=== PATIENT | male | born 1940 | race Hispanic/Latino ===

== ENCOUNTER → 2017-12-25 07:18 | Outpatient (CLI) | payer MEDICARE, SELFPAY ==
--- NOTE | 2017-12-25 | DI.RAD.S_ITS ---
PROCEDURE: XR LUMBAR SPINE MIN 4V INDICATIONS: BACK PAIN TECHNIQUE: 5 views of the lumbar spine were acquired, including flexion and extension views. COMPARISON: [facility], , -SPINE 2-3 VIEWS, 09/15/2014, 8:34. FINDINGS: Bones: 5 nonrib-bearing, lumbar type vertebral bodies are seen. Minimal anterolisthesis is seen at the L5-S1 level. The disc spaces are well-preserved. Facet arthropathy is seen throughout, which is most prominent inferiorly. Soft tissues: Overlying bowel gas pattern is normal. No suspicious soft tissue calcifications. Atherosclerotic calcification is noted. Flexion/extension: There is normal range of motion, with preserved normal alignment. IMPRESSION: Mild degenerative changes, particularly considering the patient's age. Normal range of motion, without abnormal subluxation. Dictated by: Matteo Camp M.D. on 12/25/2017 at 8:10 Approved by: Matteo Camp M.D. on 12/25/2017 at 8:11
== END ==
PROVIDERS: PCP Physician Assistant; Visit Provider Physician Assistant
DX: M47.816 Spondylosis without myelopathy or radiculopathy, lumbar region (principal); M54.9 Dorsalgia, unspecified
CPT/HCPCS: 72110

== ENCOUNTER → 2019-01-06 07:40 | Outpatient (CLI) | payer MEDICARE, SELFPAY ==
--- NOTE | 2019-01-06 | DI.RAD.S_ITS ---
PROCEDURE: XR KNEE RT 1TO2V INDICATIONS: PAIN IN RT/LT KNEE TECHNIQUE: 2 views of the knee were acquired. COMPARISON: [facility], , KNEE 3V RIGHT, 05/09/2015, 8:28. [facility], , KNEE 3V LEFT, 05/09/2015, 8:28. FINDINGS: Bones: No fractures or dislocations. No suspicious bony lesions. Scattered degenerative subchondral sclerosis and spurring. No definite joint space narrowing Soft tissues: No joint effusion. No suspicious soft tissue calcifications. IMPRESSION: Minimal degenerative changes. If the patient's pain or other symptoms persist, consider further evaluation with MRI Dictated by: Fareed Maldonado M.D. on 01/06/2019 at 9:23 Approved by: Fareed Maldonado M.D. on 01/06/2019 at 9:24
--- NOTE | 2019-01-06 | DI.RAD.S_ITS ---
PROCEDURE: XR KNEE LT 1TO2V INDICATIONS: PAIN IN RT/LT KNEE TECHNIQUE: 2 views of the knee were acquired. COMPARISON: [facility], [place], KNEE 3V LEFT, 05/09/2015, 8:28. [facility], [place], XR KNEE RT 1TO2V, 01/06/2019, 7:45. FINDINGS: Bones: No fractures or dislocations. No suspicious bony lesions. Scattered degenerative subchondral sclerosis and spurring. No definite joint space narrowing Soft tissues: No joint effusion. No suspicious soft tissue calcifications. IMPRESSION: Mild degenerative changes, without definite interval progression Dictated by: Fareed Maldonado M.D. on 01/06/2019 at 8:32 Approved by: Fareed Maldonado M.D. on 01/06/2019 at 8:33
== END ==
PROVIDERS: PCP Student in an Organized Health Care Education/Training Program; Visit Provider Student in an Organized Health Care Education/Training Program
DX: M25.561 Pain in right knee (principal); M25.562 Pain in left knee
CPT/HCPCS: 73560

== ENCOUNTER → 2019-04-23 09:16 | Outpatient (CLI) | payer MEDICARE, SELFPAY ==
--- NOTE | 2019-04-23 | DI.US.S_ITS ---
PROCEDURE: US ABD AORTA ANEURYSM SCREEN INDICATIONS: PERSONAL HX OF NICOTINE DEPENDANCE TECHNIQUE: Real time scanning was performed of the aorta and iliac arteries, with image documentation. COMPARISON: None. FINDINGS: Aorta: Proximal aortic diameter measures 2.6 cm. Mid-aorta measures 1.9 cm. Distal aortic diameter is 1.6 cm. Iliac arteries: Right common iliac artery measures 1.3 cm. Left common iliac artery measures 1.3 cm. IMPRESSION: No abdominal aortic or proximal common iliac artery aneurysm. Dictated by: Shen LEACH Interpreted: Cheryl Taylor MD on 04/23/2019 at 13:37 Approved by: Cheryl Taylor M.D. on 04/23/2019 at 14:02
== END ==
PROVIDERS: PCP Student in an Organized Health Care Education/Training Program; Visit Provider Student in an Organized Health Care Education/Training Program
DX: Z13.820 Encounter for screening for osteoporosis (principal); M85.852 Other specified disorders of bone density and structure, left thigh; Z13.6 Encounter for screening for cardiovascular disorders; Z87.891 Personal history of nicotine dependence
CPT/HCPCS: 76706; 77080

== ENCOUNTER 2019-06-14 07:48 | Day surgery (SDC) | payer MEDICARE, SELFPAY ==
--- NOTE | 2019-06-14 | PATH_ITS ---
[facility] Accession Number: [id number] . 01 Material submitted: . colon - COLON POLYP AT 100 CM . 01 Clinical history: . SCREENING COLONOSCOPY . 02 Diagnosis: Colon at 100 cm, Polyp: Tubular adenoma. MRV 06/16/2019 1029 Local . 02 Electronically signed: . Pillo Araujo MD, PhD, Pathologist NPI- [id number] . 01 Gross description: . COLON POLYP AT 100 CM: Received in formalin is 1 fragment(s) of [place], soft tissue measuring 0.3 x 0.2 x 0.2 cm submitted entirely in 1 cassette(s) /[facility] [place] 06/14/20192056 Local . 02 Pathologist provided ICD-10: D12.6 . 02 CPT . 044145 Performed at: 01 [facility] [address] [id number] MD Dean Bean MD Phone: [phone] Performed at: 02 [facility] [address] [place], [place] [id number] MD Sahara Stern MD Phone: [phone]
[2019-06-14 08:30] VITALS: BMI 32.4
--- NOTE | 2019-06-14 08:32 | P.HP_ITS ---
History of Present Illness History of Present Illness Date Patient Seen: 06/14/19 Time Patient Seen: 08:34 Chief complaint: [address] SCREENING COLONOSCOPY Narrative: Patient presents for colorectal screening. They are previously normal colonoscopy 2003. No personal or family history of colon cancer. On further history denies any recent gastrointestinal symptoms. No nausea, vomiting, abdominal pain, loss of appetite, unexplained weight loss, change in bowel habits, diarrhea, constipation, melena, hematochezia, or bright red blood per rectum. Patient History Medical History (Updated 06/14/19 @ 08:34 by Pascual Quan MD) Cervical spine fracture (Acute) Hyperlipidemia (Acute) Surgical History (Updated 06/14/19 @ 08:33 by Pascual Quan MD) S/P cervical spinal fusion (Acute) Meds Home Medications and Allergies Home Medications Medication Instructions Recorded Confirmed Type aspirin 81 mg PO Q OTHER DAY 06/14/19 06/14/19 History famotidine [Pepcid] 20 mg PO DAILY 06/14/19 06/14/19 History tadalafil [Cialis] 20 mg PO DAILY 06/14/19 06/14/19 History Allergies Allergy/AdvReac Type Severity Reaction Status Date / Time No Known Drug Allergies Allergy Verified 06/14/19 08:23 Review of Systems Review of Systems Narrative: A 10 point review of systems is negative except as noted in the HPI Exam Narrative Exam Narrative: General-no acute distress, well nourished HEENT-moist mucous membranes, no scleral icterus Neck-supple, no lymphadenopathy Chest- non labored respirations, clear to auscultation bilaterally Cardiac-regular rate no peripheral edema Abdomen-soft, nontender, non distended Extremities-warm, well perfused Neurological-alert and oriented, no focal deficits Assessment & Plan Assessment and plan (1) Screening for colon cancer: Current visit: Yes Status: Acute Assessment & Plan narrative: The patient requires colorectal screening and colonoscopy is recommended. Technical details were discussed. Risks, benefits, alternatives explained. Risks including but not limited to myocardial infarction, aspiration, bleeding, pain, missed lesion, incomplete examination, need for further radiographic studies, colonic perforation, and need for major abdominal surgery were discussed. All questions were answered to their sat isfaction, and they are in agreement with this plan.
[2019-06-14 08:40] VITALS: BP 144/90; PULSE 61; RESP 15; TEMP 36.3; O2SAT 97
[2019-06-14] MEDS: ONDANSETRON 4 MG/2 ML INJ IV (08:43)
[2019-06-14] MEDS: SODIUM CHLORIDE 0.9% 1,000 ML 200 ML IV (08:43)
--- NOTE | 2019-06-14 09:25 | PM.OP.ENDO ---
Operative Date/Time/Diagnoses Date of procedure: 06/14/19 Time of procedure: 09:25 Pre-op diagnosis: Screening Post-op diagnosis: same Procedure & Clinicians Study performed: Colonoscopy Same procedure as scheduled: Yes Indications: Screening, last colonoscopy 2003 Surgeon: Pascual Quan Procedure Notes SCOAP/Timeout: Performed Procedure in detail: Patient placed in left lateral decubitus position. Time out was performed. Procedural sedation was administered with Versed and Fentanyl. A rectal exam demonstrated no external hemorrhoids no internal masses. Colonoscopy scope was placed into the rectum and advanced through the colon to the cecum. The ileocecal valve was identified. The scope was then slowly withdrawn examining colon thoroughly in all directions. The colonoscopy was notable for the following 1. Adenomatous appearing polyp less than 1 cm at 100 cm from anal verge removed with Jumbo forceps, hemostasis observed 2. Sigmoid diverticulosis 3. Quality of prep excellent Scope withdrawal time: 9 Sedation minutes: 20 Findings: polyp Specimen(s): other (Polyp) Complications: none Impression: Polyp Post-procedure Recommendations: Colonscopy in 5 years Disposition: same day surgery
[2019-06-14] MEDS: MIDAZOLAM 5 MG/5 ML VIAL IV (09:27)
[2019-06-14 09:28] VITALS: BP 162/85; PULSE 63; RESP 12; TEMP 36.8; O2SAT 94
[2019-06-14] MEDS: fentaNYL 250 MCG/5 ML INJ IV (09:28)
[2019-06-14 09:33] VITALS: BP 155/82; PULSE 64; RESP 12; O2SAT 93
[2019-06-14 09:38] VITALS: BP 152/80; PULSE 61; RESP 14; O2SAT 94
[2019-06-14 09:44] VITALS: BP 157/96; PULSE 65; RESP 12; TEMP 36.6; O2SAT 96
== END 2019-06-14 10:08 | disposition home or self-care (01) ==
PROVIDERS: PCP Student in an Organized Health Care Education/Training Program; Referring Provider Student in an Organized Health Care Education/Training Program; Visit Provider Surgery
PROC: 0DJD8ZZ Inspection of Lower Intestinal Tract, Via Natural or Artificial Opening Endoscopic (ICD-10-PCS; CPT 45378; principal; 2019-06-14 09:15)
DX: Z12.11 Encounter for screening for malignant neoplasm of colon (principal); K57.30 Diverticulosis of large intestine without perforation or abscess without bleeding; E78.5 Hyperlipidemia, unspecified; D12.6 Benign neoplasm of colon, unspecified
CPT/HCPCS: 45380; 99152; J2250; J2405; J3010

== ENCOUNTER 2020-08-02 13:43 | Emergency (ER) | payer MEDICARE, SELFPAY ==
[2020-08-02 13:53] VITALS: BP 173/95; PULSE 60; RESP 16; TEMP 36.7; O2SAT 100
--- NOTE | 2020-08-02 14:15 | ED.WOUNDLAC ---
HPI - Wound/Laceration General Chief Complaint: Wound/Laceration Stated Complaint: sliced middle finger right hand Time Seen by Provider: 08/02/20 14:13 Source: patient Mode of arrival: Ambulatory Limitations: no limitations History of Present Illness HPI narrative: 79-year-old male here for evaluation of a right middle finger injury. He states that he cut it when he got it shut in a car door. Is up-to-date on his immunizations. Has not cleaned it out prior to arrival. Covered with bandaging came to the emergency department. Related Data Home Medications Medication Instructions Recorded Confirmed aspirin 81 mg PO Q OTHER DAY 06/14/19 06/14/19 famotidine [Pepcid] 20 mg PO DAILY 06/14/19 06/14/19 tadalafil [Cialis] 20 mg PO DAILY 06/14/19 06/14/19 Allergies Allergy/AdvReac Type Severity Reaction Status Date / Time No Known Drug Allergies Allergy Verified 06/14/19 08:23 Review of Systems Constitutional Constitutional: Denies fever(s) Musculoskeletal Musculoskeletal: Denies tingling Comments: Pain the tip of the right middle finger Integumentary/Breasts Comments: Cut to right middle finger Neurologic Neurologic: Denies confusion and Denies tingling Psychiatric Psychiatric: Denies confusion Hematologic/Lymphatic On Anticoagulants: No Allergic/Immunologic Allergic/Immunologic: Denies urticaria Patient History Medical History Cervical spine fracture Hyperlipidemia Surgical History (Updated 06/14/19 @ 08:33 by Pascual Quan MD) S/P cervical spinal fusion Social History household members: spouse Smoking Status: Former smoker alcohol intake: current Smoking Status: Former smoker alcohol intake frequency: a few times a month Substance Use Type: does not use Exam Initial Vital Signs Initial Vital Signs: Vital Signs Temperature 98.0 F 08/02/20 13:53 Pulse Rate 60 08/02/20 13:53 Respiratory Rate 16 08/02/20 13:53 Blood Pressure 173/95 H 08/02/20 13:53 Pulse Oximetry 100 08/02/20 13:53 Const General: cooperative, comfortable and well developed HENGA Head: normal to inspection and normocephalic Resp Effort & Inspection: normal respiratory effort Cardio Pulses: radial pulses present on the right Skin Other: Patient with a 2 cm laceration on the radial aspect of the right middle finger to the D IP joint on the volar aspect. Neuro General: patient alert, patient awake and patient oriented x3 Sensory Exam: no sensory deficits noted Extrem General: capillary refill normal Psych Appearance: grossly normal and well kempt Procedures Laceration Repair Laceration 1: Site: other (Middle finger) Side (If applicable): right Size (cm): 3 Description: linear Depth: simple, single layer Local Anesthetic: lidocaine 1% and with bicarb Amount of anesthesia used (mL): 3 Pre-repair: wound explored and irrigated extensively Skin layer closed with: nylon Size (cm): 4-0 Number of sutures: 6 Technique: simple, interrupted Course Orders Ordered: ED Orders 08/02/20 14:15 XR finger RT min 2V Stat Discontinued Medications Bacitracin (Bacitracin Oint 0.9 Gm Pckt) 1 applic TOP NOW ONE Stop: 08/02/20 14:16 Last Admin: 08/02/20 14:33 Dose: 1 applic Documented by: USHA Lidocaine/Sodium Bicarbonate (Lido 1%/Sod Bicarb 8.4% (10ml) 10 Ml Syringe) 10 ml INJ NOW ONE Stop: 08/02/20 14:16 Last Admin: 08/02/20 14:33 Dose: 10 ml Documented by: USHA Vital Signs Vital signs: Vital Signs - 8 hr 08/02/20 13:53 Temperature 98.0 F Pulse Rate 60 Respiratory Rate 16 Blood Pressure 173/95 H Pulse Oximetry 100 MDM - Wound/Laceration Imaging Data Extremity x-ray #1: Radiologist's Impression: [address] [id number] ReportSigned Patient: Gulshan Ryder Jr EMR#: [id number]: [id number]:[id number]/Sex: 79 / MDate of Service: 08/02/20Loc: EDAccession Number: [id number] Procedure: XR finger RT min 2V Ordering Provider: Davie Du D.O. PROCEDURE: XR FINGER RT MIN 2V INDICATIONS: middle finger laderation/trauma, 3rd digit TECHNIQUE: AP hand, 2 views of the 3rd finger(s) acquired. COMPARISON: None. FINDINGS: Bones: No fractures or dislocations. No suspicious bony lesions. Moderately severe degenerative arthritis at the base of the thumb. Soft tissues: No suspicious soft tissue calcifications. 3rd finger soft tissue laceration. No radiopaque foreign body. No soft tissue gas IMPRESSION: No evidence acute bony abnormality of the right middle finger. Incidental note made of moderately severe base of thumb degenerative change. Dictated by: Chad Yanez M.D. on 08/02/2020 at 14:49 Approved by: Chad Yanez M.D. on 08/02/2020 at 14:51 [facility] Narrative Medical decision making narrative: There were no fractures on the x-ray. The wound was closed as described above. He was neurovascularly intact. He was given care instructions and return precautions. He expressed understanding and agreement. Discharge Plan Departure Patient Disposition: Home Clinical Impression: Laceration Instructions: DI for Laceration Repair Activity Restrictions/Additional Instructions: The stitches do need to be removed in 7-10 days. You can wash your hands like normal and use soap and water. You can cover with antibiotic ointment and a bandage. There is research that shows local craft beers improve the healing of finger lacerations. Prescriptions: No Action aspirin 81 mg Tablet,Delayed Release (Dr/Ec) 81 mg PO Q OTHER DAY RF: 0 famotidine [Pepcid] 20 mg Tablet 20 mg PO DAILY RF: 0 tadalafil [Cialis] 20 mg Tablet 20 mg PO DAILY RF: 0 Referrals: Rosy Michael PA-C [Primary Care Provider] -
[2020-08-02] MEDS: BACITRACIN OINT 0.9 GM PCKT 1 APPLIC TOP (14:33)
[2020-08-02] MEDS: LIDO 1%/SOD BICARB 8.4% (10ML) 10 ML SYRINGE INJ (14:33)
== END 2020-08-02 15:14 | disposition home or self-care (01) ==
PROVIDERS: Emergency Provider Emergency Medicine; PCP Student in an Organized Health Care Education/Training Program
DX: S61.212A Laceration without foreign body of right middle finger without damage to nail, initial encounter (principal); W23.0XXA Caught, crushed, jammed, or pinched between moving objects, initial encounter
CPT/HCPCS: 12002; 73140; 99283

== ENCOUNTER → 2021-04-05 12:21 | Outpatient (CLI) | payer MEDICARE, SELFPAY ==
--- NOTE | 2021-04-05 12:25 | DI.RAD.S_ITS ---
PROCEDURE: XR THORACIC SPINE 2V INDICATIONS: MID BACK PAIN TECHNIQUE: 3 views of the thoracic spine were acquired. COMPARISON: [facility], , THORACIC SPINE 3 VIEWS, 09/15/2014, 8:33. [facility], CERVICAL SPINE 4 OR 5 VIEWS, 09/15/2014, 8:28. FINDINGS: Bones: No fractures or dislocations. No suspicious bony lesions. 12 pairs of ribs are noted, and appear intact where visualized. Mild multilevel disc degeneration. Multilevel flowing syndesmophytes. Posterior fixation hardware present at the cervical thoracic junction incompletely visualized. Soft tissues: No paravertebral stripe thickening. IMPRESSION: Mild multilevel disc degeneration. Multilevel flowing syndesmophytes which can be associated with ankylosing spondylitis in the appropriate clinical setting. Dictated by: Shen Lopez [facility] Interpreted: Yaritza Talbot MD on 04/05/2021 at 12:42 Transcribed by: KYRA on 04/05/2021 at 12:43 Approved by: Yaritza Talbot M.D. on 04/05/2021 at 12:54
== END ==
PROVIDERS: PCP Student in an Organized Health Care Education/Training Program; Referring Provider Student in an Organized Health Care Education/Training Program; Visit Provider Student in an Organized Health Care Education/Training Program
DX: M51.34 Other intervertebral disc degeneration, thoracic region (principal); M54.9 Dorsalgia, unspecified
CPT/HCPCS: 72070

== ENCOUNTER → 2022-12-18 17:36 | Outpatient (CLI) | payer MEDICARE, SELFPAY | PROVIDERS: PCP Student in an Organized Health Care Education/Training Program; Visit Provider Student in an Organized Health Care Education/Training Program | DX: R30.0 Dysuria (principal) | CPT/HCPCS: 87086 ==

== ENCOUNTER 2023-09-05 17:40 | Emergency (ER) | payer MEDICARE, SELFPAY ==
[2023-09-05 17:57] VITALS: BP 174/77; PULSE 52; RESP 16; TEMP 36.4; O2SAT 95; BMI 33.5
--- NOTE | 2023-09-05 18:16 | DI.RAD.S_ITS ---
PROCEDURE: XR CHEST 1V INDICATIONS: Possible stroke TECHNIQUE: One view of the chest was acquired. COMPARISON: None. FINDINGS: Surgical changes and devices: Partially evaluated lower cervical spinal hardware. Lungs and pleura: Lungs are clear. No pleural effusions or pneumothorax. Mediastinum: Mediastinal contours appear normal. Heart size is normal. Bones and chest wall: No suspicious bony lesions. Overlying soft tissues appear unremarkable. IMPRESSION: No acute cardiopulmonary abnormality is seen. Approved by: Lise Jonas M.D.,Ph.D. on 09/05/2023 at 17:48
--- NOTE | 2023-09-05 18:16 | DI.CT.S_ITS ---
PROCEDURE: CT HEAD/BRAIN WO CON INDICATIONS: tia symptoms TECHNIQUE: Noncontrast 4.5 mm thick angled axial sections acquired from the foramen magnum to the vertex, with coronal and sagittal reformats. For radiation dose reduction, the following was used: automated exposure control, adjustment of mA and/or kV according to patient size. COMPARISON: None. FINDINGS: Image quality: Diagnostic. CSF spaces: Basal cisterns are patent. No extra-axial fluid collections. The ventricles are symmetric in size and shape. Brain: No intracranial bleeds or masses. There is cerebral volume loss for age, with resultant ventricular and sulcal prominence. There are periventricular and deep white matter chronic small vessel ischemic changes. There is intracranial internal carotid artery atherosclerosis. Skull and face: Calvarium and visualized facial bones appear intact, without suspicious lesions. Sinuses: Visualized sinuses and mastoids are clear. IMPRESSION: 1. No acute intracranial abnormalities. If clinical symptoms persist or clinical suspicion for pathology is high, consider MRI for further evaluation. 2. Cerebral volume loss and chronic microvascular ischemic changes. Dictated by: Yaritza Talbot M.D. on 09/05/2023 at 18:27 Approved by: Yaritza Talbot M.D. on 09/05/2023 at 18:29
[2023-09-05 18:41] LABS: Add Manual Diff / Slide Review NO; Basophils Absolute Auto 100 /uL (0-100); Basophils Percent Auto 1.1 % (0-2); Eosinophils Absolute Auto 400 /uL (0-450); Eosinophils Percent Auto 4.7 % (2-4); Hematocrit 42.4 % (41-53); Hemoglobin 14.3 g/dL (13.5-17.5); Lymphocytes Absolute Auto 2100 /uL (1100-4500); Lymphocytes Percent Auto 21.7 % (25-40); Mean Corpuscular HGB Conc 33.8 % (30-36); Mean Corpuscular Hemoglobin 31.2 PG (26-34); Mean Corpuscular Volume 92.2 fL (80-100); Monocytes Absolute Auto 1000 /uL (0-900); Monocytes Percent Auto 10.8 % (3-14); Neutrophils Absolute Auto 5900 /uL (1500-7000); Neutrophils Percent Auto 61.7 % (50-75); Platelet Count 300 X10^3/uL (150-400); Red Blood Cell Count 4.59 X10^6/uL (4.5-5.9); Red Cell Distribution Width 13.1 % (11.6-14.8); White Blood Cell Count 9.5 X10^3/uL (4.5-11.0)
[2023-09-05 18:47] LABS: Prothrombin Time 11.5 SECONDS (9.4-12.5)
[2023-09-05 18:50] LABS: PTT Partial Thromboplastin Tim 31 SECONDS (25.1-36.5)
[2023-09-05 18:58] LABS: Alanine Aminotransferase 19 IU/L (<50); Albumin 4.2 g/dL (3.5-5.0); Albumin Globulin Ratio 1.6 (1.0-2.8); Alkaline Phosphatase 78 U/L (38-126); Aspartate Aminotransferase 23 IU/L (17-59); BUN Creatinine Ratio 12.9 (6-22); Bilirubin Total 0.6 mg/dL (0.2-1.3); Blood Urea Nitrogen 12 mg/dL (9-20); Calcium 8.8 mg/dL (8.4-10.2); Carbon Dioxide 27 mmol/L (22-32); Chloride 106 mmol/L (98-107); Creatine Kinase 44 U/L (55-170); Estimated Glomerular Filt Rate > 60 mL/min (>60); Globulin 2.6 g/dL (1.7-4.1); Glucose 96 mg/dL (80-110); HEMOLYSIS 23 (0-50); Magnesium 2.3 mg/dL (1.6-2.3); Sodium 138 mmol/L (137-145); Total Protein 6.8 g/dL (6.3-8.2)
[2023-09-05 19:09] LABS: Troponin I < 0.012 ng/mL (0.01-0.034)
--- NOTE | 2023-09-05 19:18 | ED.NEUROSD ---
HPI - Neuro Symptoms/Deficit General Chief Complaint: Neuro Symptoms/Deficit Stated Complaint: poss stroke or tia Time Seen by Provider: 09/05/23 18:25 History of Present Illness HPI Narrative: 83-year-old male with history hyperlipidemia presents for evaluation of possible stroke. Patient states that while walking down the street today he had sudden headache and severe loss of balance that caused him to stumble to the right-hand side. He was unable to right himself for several steps. He states he currently feels somewhat lightheaded but his balance is back to normal. He states that this is a sudden and extreme change in his walking pattern. During this episode he denies any numbness, weakness, slurred speech, obvious facial droop. Daughter was with the patient on his walk when this occurred. On Anticoagulants: No Related Data Home Medications Medication Instructions Recorded Confirmed aspirin 81 mg tablet,delayed 81 mg PO Q OTHER DAY 06/14/19 12/18/22 release famotidine 20 mg tablet (Pepcid) 20 mg PO DAILY 06/14/19 12/18/22 tadalafil 20 mg tablet (Cialis) 20 mg PO DAILY 06/14/19 12/18/22 rosuvastatin 10 mg tablet 10 mg PO ONCE PM 12/18/22 12/18/22 Allergies Allergy/AdvReac Type Severity Reaction Status Date / Time No Known Drug Allergies Allergy Verified 12/18/22 17:45 Review of Systems Review of Systems Narrative: See HPI Hematologic/Lymphatic On Anticoagulants: No Patient History Medical History Cervical spine fracture Hyperlipidemia Surgical History S/P cervical spinal fusion Social History household members: spouse Smoking Status: Former smoker alcohol intake: current Smoking Status: Former smoker tobacco type: cigarettes alcohol intake frequency: a few times a month Substance Use Type: does not use Exam Initial Vital Signs Initial Vital Signs: Vital Signs Temperature 97.5 F L 09/05/23 17:57 Pulse Rate 52 L 09/05/23 17:57 Respiratory Rate 16 09/05/23 17:57 Blood Pressure 174/77 H 09/05/23 17:57 Pulse Oximetry 95 09/05/23 17:57 Oxygen Delivery Method Room Air 09/05/23 17:57 Const: Awake, alert, no acute distress, nontoxic appearing Cardiac: regular rate, regular rhythm RESP: unlabored, clear bilaterally, no wheezing Skin: Warm, Dry, intact, no rashes Neuro: AO x3, CN II-XII grossly intact, no ataxia, gait normal, normal strength in extremities Course Orders Ordered: ED Orders 09/05/23 19:25 MR head/brain wo con Stat Discontinued Medications Ondansetron HCl (Ondansetron 4 Mg/2 Ml Inj) 4 mg IV NOW PRN PRN Reason: Nausea And Vomiting Ondansetron HCl (Ondansetron 4 Mg Odt) 4 mg SL NOW PRN PRN Reason: Nausea And Vomiting Vital Signs Vital signs: Vital Signs - 8 hr 09/05/23 21:54 Pulse Rate 55 L Respiratory Rate 18 Blood Pressure 167/70 H Pulse Oximetry 98 Oxygen Delivery Method Room Air MDM - Neuro Symptoms/Deficit Differential Diagnosis Differential diagnosis: Likely cerebrovascular accident, multiple sclerosis and transient cerebral ischemia Lab Data 09/05/23 18:33 09/05/23 18:33 Labs: Lab Results 09/05/23 Range/Units 18:33 WBC 9.5 (4.5-11.0) X10^3/uL RBC 4.59 (4.5-5.9) X10^6/uL Hgb 14.3 (13.5-17.5) g/dL Hct 42.4 (41-53) % MCV 92.2 (80-100) fL MCH 31.2 (26-34) PG MCHC 33.8 (30-36) % RDW 13.1 (11.6-14.8) % Plt Count 300 (150-400) X10^3/uL Neut % (Auto) 61.7 (50-75) % Lymph % (Auto) 21.7 L (25-40) % Marshall % (Auto) 10.8 (3-14) % Eos % (Auto) 4.7 H (2-4) % Baso % (Auto) 1.1 (0-2) % Neut # (Auto) 5900 (6355-6145) /uL Lymph # (Auto) 2100 (0367-4301) /uL Marshall # (Auto) 1000 H (0-900) /uL Eos # (Auto) 400 (0-450) /uL Baso # (Auto) 100 (0-100) /uL PT 11.5 (9.4-12.5) SECONDS INR 1.0 (0.9-1.3) APTT 31 (25.1-36.5) SECONDS Sodium 138 (137-145) mmol/L Potassium 4.0 (3.4-5.1) mmol/L Chloride 106 (98-107) mmol/L Carbon Dioxide 27 (22-32) mmol/L BUN 12 (9-20) mg/dL Creatinine 0.93 (0.66-1.25) mg/dL Estimated GFR > 60 (>60) mL/min BUN/Creatinine Ratio 12.9 (6-22) Glucose 96 (80-110) mg/dL Calcium 8.8 (8.4-10.2) mg/dL Magnesium 2.3 (1.6-2.3) mg/dL Total Bilirubin 0.6 (0.2-1.3) mg/dL AST 23 (17-59) IU/L ALT 19 (<50) IU/L Alkaline Phosphatase 78 (38-126) U/L Total Creatine Kinase 44 L (55-170) U/L Troponin I < 0.012 (0.01-0.034) ng/mL Total Protein 6.8 (6.3-8.2) g/dL Albumin 4.2 (3.5-5.0) g/dL Globulin 2.6 (1.7-4.1) g/dL Albumin/Globulin Ratio 1.6 (1.0-2.8) Point of Care Testing Glucose POC [address] scan - head: Radiologist's Impression: PROCEDURE: CT HEAD/BRAIN WO CON INDICATIONS: tia symptoms TECHNIQUE: Noncontrast 4.5 mm thick angled axial sections acquired from the foramen magnum to the vertex, with coronal and sagittal reformats. For radiation dose reduction, the following was used: automated exposure control, adjustment of mA and/or kV according to patient size. COMPARISON: None. FINDINGS: Image quality: Diagnostic. CSF spaces: Basal cisterns are patent. No extra-axial fluid collections. The ventricles are symmetric in size and shape. Brain: No intracranial bleeds or masses. There is cerebral volume loss for age, with resultant ventricular and sulcal prominence. There are periventricular and deep white matter chronic small vessel ischemic changes. There is intracranial internal carotid artery atherosclerosis. Skull and face: Calvarium and visualized facial bones appear intact, without suspicious lesions. Sinuses: Visualized sinuses and mastoids are clear. IMPRESSION: 1. No acute intracranial abnormalities. If clinical symptoms persist or clinical suspicion for pathology is high, consider MRI for further evaluation. 2. Cerebral volume loss and chronic microvascular ischemic changes. Dictated by: Yaritza Talbot M.D. on 09/05/2023 at 18:27 Approved by: Yaritza Talbot M.D. on 09/05/2023 at 18:29 PROCEDURE: MR HEAD/BRAIN WO CON INDICATIONS: LURCHING TO R SIDE X 1 DAY TECHNIQUE: Non-contrast axial T1 spin echo, axial T2 fast spin echo, sagittal and axial FLAIR, coronal T2 fast spin echo, axial gradient echo, axial diffusion and ADC through the brain. COMPARISON: [facility], CT, CT HEAD/BRAIN WO CON, 09/05/2023, 18:26. FINDINGS: Image quality: Excellent. CSF spaces: Ventricles appear symmetric in size and shape. Basal cisterns are patent. No extra-axial fluid collections. Brain: No intracranial bleeds or mass effects. There is cerebral volume loss for age. There are periventricular and deep white matter chronic small vessel ischemic changes. Brainstem appears normal. Diffusion-weighted images show no acute infarct. No chronic ischemic insults. Normal intravascular flow voids are present. Skull and face: Calvarial bone marrow is normal in signal. Orbits are normal. Sinuses: Sinuses and mastoids are clear. IMPRESSION: 1. No acute intracranial abnormalities. 2. Cerebral volume loss and chronic microvascular ischemic changes. Dictated by: Yaritza Talbot M.D. on 09/05/2023 at 21:08 Approved by: Yaritza Talbot M.D. on 09/05/2023 at 21:10 [facility] Narrative Medical decision making narrative: Sudden in intense change in balance causing patient to list to the side. Patient currently is alert, oriented, ambulatory without difficulty, he was able to ambulate back and forth with quick direction changes and no witnessed ataxia. Risk factor of hyperlipidemia. CT imaging negative for acute findings. I was able to contact the MRI department to see if a noncontrast brain could be obtained today. They state that they have an opening in the schedule and will take patient for MRI. Laboratory work is reviewed, no acute abnormalities identified. MRI brain negative for acute findings. Patient has remained asymptomatic throughout stay in emergency department with no return of balance issues or any new neurologic complaints. Patient and informed of lab and imaging findings at bedside. No obvious source of patient's episode today, however it was not appear to be a stroke or brain mass. states that they will follow up with the patient's primary care doctor for further evaluation. ED return precautions discussed at bedside. Patient expressed understanding of the plan and is in agreement at this time. All questions answered at the time of discharge. Discharge Plan Departure Patient Disposition: Home Clinical Impression: Difficulty balancing Instructions: DI for Dizziness-Nonvertigo Activity Restrictions/Additional Instructions: Your laboratory work and MRI imaging today was normal. I do not have a definitive cause for your balance issue today. I do recommend close follow up with your primary care physician, especially if you continued to have episodes of dizziness. I would not recommend driving long distances or operating heavy machinery while the cause of your dizziness is still under investigation. Prescriptions: No Action rosuvastatin 10 mg tablet 10 mg PO ONCE PM aspirin 81 mg Tablet,Delayed Release (Dr/Ec) 81 mg PO Q OTHER DAY famotidine [Pepcid] 20 mg Tablet 20 mg PO DAILY tadalafil [Cialis] 20 mg Tablet 20 mg PO DAILY Referrals: Rosy Michael PA-C [Primary Care Provider] - Stand Alone Forms: Patient Portal/API
--- NOTE | 2023-09-05 19:25 | DI.MRI.S_ITS ---
PROCEDURE: MR HEAD/BRAIN WO CON INDICATIONS: LURCHING TO R SIDE X 1 DAY TECHNIQUE: Non-contrast axial T1 spin echo, axial T2 fast spin echo, sagittal and axial FLAIR, coronal T2 fast spin echo, axial gradient echo, axial diffusion and ADC through the brain. COMPARISON: [facility], CT, CT HEAD/BRAIN WO CON, 09/05/2023, 18:26. FINDINGS: Image quality: Excellent. CSF spaces: Ventricles appear symmetric in size and shape. Basal cisterns are patent. No extra-axial fluid collections. Brain: No intracranial bleeds or mass effects. There is cerebral volume loss for age. There are periventricular and deep white matter chronic small vessel ischemic changes. Brainstem appears normal. Diffusion-weighted images show no acute infarct. No chronic ischemic insults. Normal intravascular flow voids are present. Skull and face: Calvarial bone marrow is normal in signal. Orbits are normal. Sinuses: Sinuses and mastoids are clear. IMPRESSION: 1. No acute intracranial abnormalities. 2. Cerebral volume loss and chronic microvascular ischemic changes. Dictated by: Yaritza Talbot M.D. on 09/05/2023 at 21:08 Approved by: Yaritza Talbot M.D. on 09/05/2023 at 21:10
[2023-09-05 21:54] VITALS: BP 167/70; PULSE 55; RESP 18; O2SAT 98
== END 2023-09-05 22:01 | disposition home or self-care (01) ==
PROVIDERS: Emergency Provider Emergency Medicine; PCP Student in an Organized Health Care Education/Training Program
DX: R29.818 Other symptoms and signs involving the nervous system (principal); R42 Dizziness and giddiness
CPT/HCPCS: 70450; 70551; 71045; 80053; 82550; 82962; 83735; 84484; 85025; 85610; 85730; 93005; 99284